=== PATIENT | male | born 2000 | race Hispanic/Latino ===

== ENCOUNTER 2022-06-17 16:14 | Emergency (ER) | payer SELFPAY ==
[~2022-06-17] VITALS: Ht 172.7 cm; Wt 108.0 kg
[2022-06-17] MEDS ORDERED: LIDOCAINE VISC 2% SOLN 15 ML UDC PO ONE (16:45)
[2022-06-17] MEDS ORDERED: MAGNESIUM/ALUMINUM/SIMETHICONE 30 ML UDC PO ONE (16:45)
== END 2022-06-17 17:00 | disposition home or self-care (01) ==
LOC: ER 16:20
DX: R07.0 Pain in throat (principal); F12.90 Cannabis use, unspecified, uncomplicated
CPT/HCPCS: 99283